=== PATIENT | female | born 1970 | race Caucasian/White ===

== ENCOUNTER → 2016-10-11 | Outpatient (CLI) | payer OTHER ==
[2016-10-11 13:23] LABS: Prolactin 34.3 ng/mL (3.0-18.6)
== END | disposition home or self-care (01) ==
LOC: LABWHC1 12:10
PROVIDERS: ATTEND Internal Medicine Endocrinology, Diabetes & Metabolism
DX: R53.83 Other fatigue (principal)
CPT/HCPCS: 36415; 82533; 82607; 84146; 84439; 84443; 84480

== ENCOUNTER → 2016-10-25 | Outpatient (CLI) | payer OTHER | END | disposition home or self-care (01) | LOC: LABWHC1 16:01 | PROVIDERS: ATTEND Internal Medicine Endocrinology, Diabetes & Metabolism | DX: R53.83 Other fatigue (principal) | CPT/HCPCS: 36415; 84146 ==

== ENCOUNTER → 2016-11-01 | Outpatient (CLI) | payer OTHER ==
--- NOTE | 2016-11-01 22:35 | MR ---
EXAMINATION TYPE: MR pituitary wo/w con DATE OF EXAM: 11/01/2016 9:32 PM COMPARISON: NONE HISTORY: Increased prolactin, fatigue; Multihance 20ml. CONTRAST: Standard multiplanar, multisequence MRI departmental protocol utilizing 20 mL intravenous MultiHance gadolinium contrast. TECHNIQUE: T1 sagittal, T1 coronal fat saturation, T2 coronal, postcontrast T coronal fat saturation and T1 sagittal images are submitted. Images acquired with a 3.0 Radha magnet. FINDINGS: Pituitary stock is midline. There is homogeneous signal throughout the pituitary gland on precontrast images. Following contrast administration there is homogeneous enhancement. Pituitary gland is of normal size measuring 6 mm. Optic chiasm has a normal appearance. There is no evidence of suprasellar mass. Cavernous sinus enhances normally. 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 Correlate clinically. IMPRESSION: Normal appearance of the pituitary gland.
== END | disposition home or self-care (01) ==
LOC: RADMRIMAIN 20:38
PROVIDERS: ATTEND Internal Medicine Endocrinology, Diabetes & Metabolism
DX: E22.9 Hyperfunction of pituitary gland, unspecified (principal); R53.83 Other fatigue; R71.8 Other abnormality of red blood cells
CPT/HCPCS: 70553; A9577

== ENCOUNTER → 2018-05-02 | Outpatient (CLI) | payer OTHER ==
--- NOTE | 2018-05-06 12:08 | MM ---
Reason for exam: screening (asymptomatic). Last mammogram was performed 4 years and 11 months ago. History: Patient is nulliparous. Physical Findings: A clinical breast exam by your physician is recommended on an annual basis and results should be correlated with mammographic findings. MG Screening Mammo w CAD Bilateral CC and MLO view(s) were taken. Prior study comparison: June 01, 2013, mammogram. There are scattered fibroglandular densities. No significant changes when compared with prior studies. ASSESSMENT: Benign, BI-RAD 2 RECOMMENDATION: Routine screening mammogram of both breasts in 1 year.
== END | disposition home or self-care (01) ==
LOC: RADMAMWWP 14:29
PROVIDERS: ATTEND Internal Medicine
DX: Z12.31 Encounter for screening mammogram for malignant neoplasm of breast (principal)
CPT/HCPCS: 77067